=== PATIENT | female | born 1990 | race Caucasian/White ===

== ENCOUNTER → 2017-05-11 | Outpatient (REF) | payer OTHER, MEDICAID | LOC: M SFHCWAGY 14:32 | PROVIDERS: ATTEND Nurse Practitioner Family | DX: Z12.4 Encounter for screening for malignant neoplasm of cervix (principal) ==

== ENCOUNTER → 2018-07-20 | Outpatient (REF) | payer MEDICARE | LOC: M SFHCWAGY 15:53 | PROVIDERS: ATTEND Nurse Practitioner Family | DX: Z12.4 Encounter for screening for malignant neoplasm of cervix (principal) | CPT/HCPCS: G0123; G0463 ==

== ENCOUNTER → 2021-07-23 | Outpatient (REF) | payer OTHER, MEDICAID | LOC: M SFHCWAGY 13:21 | PROVIDERS: ATTEND Nurse Practitioner Women's Health | DX: Z12.4 Encounter for screening for malignant neoplasm of cervix (principal) ==

== ENCOUNTER → 2022-11-02 | Outpatient (REF) | payer BC | LOC: M PLALAB 09:35 | PROVIDERS: ATTEND Nurse Practitioner Family | DX: Z12.4 Encounter for screening for malignant neoplasm of cervix (principal) | CPT/HCPCS: 87624; G0123 ==

== ENCOUNTER → 2023-11-12 | Outpatient (CLI) | payer BC | LOC: M PLAIMG 09:11 → M PLALAB 09:11 | PROVIDERS: ATTEND Physician Assistant | DX: M25.532 Pain in left wrist (principal) ==

== ENCOUNTER → 2023-11-12 | Outpatient (REF) | payer BC | LOC: M SFHCWAGY 13:19 | PROVIDERS: ATTEND Nurse Practitioner Family | DX: Z12.4 Encounter for screening for malignant neoplasm of cervix (principal) | CPT/HCPCS: 87624; G0123 ==